=== PATIENT | female | born 1935 | race Caucasian/White ===

== ENCOUNTER → 2016-12-17 | Outpatient (CLI) | payer OTHER ==
[~2016-12-17] MED LIST: ALPRAZOLAM0.25 MG PO; BENIFIBER PO; CALCIUM + D 6001 TA1 PO; FERRO-TIME325 MG PO; FIBER350 GM PO; FISH OIL 1,001000 M1 PO; LANOXIN125 MCG PO; LEVOTHYROXINE25 MCG PO; OMEGA 3 FISH OI1 CAP PO; PRAVASTATIN SOD80 MG PO; PRILOSEC20 MG PO; RALOXIFENE HCL60 MG PO
--- NOTE | ~2016-12-17 | BD1 ---
[facility] A Service of [facility] & [facility] RADIOLOGY TEXT RESULTS PATIENT: YAKOV JOEL LOCATION: [facility] : 35 UNIT #: [id number] AGE: [address]: Miguelina Will MD SEX: F ORDER DR: [id number] [facility] [address] [place], [place] [address] [id number] O MR#: [id number] Acc #: [id number] NAME: YAKOV JOEL : 1935 SEX: F STUDY DATE/TIME: 12/17/2016 9:53 UNIT: [facility] ROOM: STUDY DESCRIPTION: BD Dexa Bone Dens 1+ Site Attending Physician: Miguelina Will M.D. Ordering Physician: Miguelina Will M.D. Primary Care Physician: Miguelina Will M.D. MEDICAL IMAGING REPORT This report is preliminary unless electronic signature is present EXAM Bone density spine/hip 12/17/2016 HISTORY Osteo. Postmenopausal. Nonsmoker. TECHNIQUE Bone density scanning performed upper 4 lumbar vertebral segments and the proximal left femur in 81-year-old 128-pound female. COMPARISON STUDIES 10/23/2014. FINDINGS L1-L4: Total bone mineral density 0.786 g/cm2 for a T-score 2.4 below mean for reference population normal young individuals and Z-score 0.4 standard deviations above the mean for age-match population. Compared to October 2014, there has been a statistically significant 15.4% increase in bone mineral density in this region. PROXIMAL LEFT FEMUR: Total bone mineral density 0.717 g/cm2 for a T-score 1.8 standard deviations below mean for reference population normal young individuals and Z-score 0.3 standard deviations above the mean for age-match population. The left femoral neck specifically, the bone low density is at 0.671 g/cm2 for T-score 1.6 standard deviations below mean for a reference population normal young individuals and Z-score 0.8 standard deviations above the mean for age-matched population. Using total bone mineral density as trending value in this region, there has been a 24.7% statistically significant increase in bone mineral density in the proximal left femur compared to 10/23/2014. IMPRESSION [facility]. [facility] A Service of [facility] & [facility] RADIOLOGY TEXT RESULTS PATIENT: YAKOV JOEL LOCATION: [facility] : 35 UNIT #: [id number] AGE: [address]: Miguelina Will MD SEX: F ORDER DR: 1. Osteopenia in the upper 4 lumbar vertebral segments overall. Patient felt to be at increased risk for fracture. Treatment options may be considered. Continued surveillance is recommended. 2. Statistically significant increases in bone mineral density upper 4 lumbar vertebral segments and proximal left femur compared to October 2014. See details above. Dictated by... Braulio An M.D. THIS IS AN ELECTRONICALLY VERIFIED REPORT Braulio An M.D. at 12/18/2016 6:15 PM Tasha TD: 12/17/2016 17:57 JOB #: [id number] MEDICAL IMAGING REPORT Page 1 of 1 COPY
--- NOTE | ~2016-12-17 | MY29 ---
[facility] A Service of [facility] / [facility] RADIOLOGY TEXT RESULTS PATIENT: YAKOV JOEL LOCATION: [facility] : 35 UNIT #: [id number] AGE: [address]: Miguelina Will MD SEX: F ORDER DR: [id number] [facility] [address] [place], [place] [address] [id number] O MR#: [id number] Acc #: [id number] NAME: YAKOV JOEL : 1935 SEX: F STUDY DATE/TIME: 12/17/2016 9:43 UNIT: [facility] ROOM: STUDY DESCRIPTION: MY LAUREN SCREENING W/ CAD BILAT Attending Physician: Miguelina Will M.D. Ordering Physician: Miguelina Will M.D. Primary Care Physician: Miguelina Will M.D. MEDICAL IMAGING REPORT This report is preliminary unless electronic signature is present EXAM Digital screening mammogram, 12/17/2016 HISTORY 81-year-old woman previous left lumpectomy with adjuvant radiation therapy. Annual screening. COMPARISON Mammograms date to 02/25/2006 with most recent screening 12/12/2015. FINDINGS Digital imaging of each breast was completed utilizing screening protocol. A true lateral view of the left breast is included. Review includes FDA-approved CAD device. Breast parenchyma is heterogeneous with residual parenchymal opacities in each breast. Right nipple inversion is noted. Left nipple inversion and retraction noted. I see no suspicious breast mass. There are no interval occurring microcalcifications and no suspicious architectural deformity. IMPRESSION Benign mammogram. Stable post lumpectomy findings left breast. Annual screening recommended. Patients over the age of 40 are entered into a reminder system with target due date for the next mammogram. A result letter will also be sent to the patient. BIRADS: 2 Benign Finding Dictated by... Yovany Polanco M.D. THIS IS AN ELECTRONICALLY VERIFIED REPORT [facility] A Service of [facility] / [facility] RADIOLOGY TEXT RESULTS PATIENT: YAKOV JOEL LOCATION: [facility] : 35 UNIT #: [id number] AGE: [address]: Miguelina Will MD SEX: F ORDER DR: Yovany Polanco M.D. at 12/17/2016 1:34 PM Erika TD: 12/17/2016 12:39 JOB #: [id number] MEDICAL IMAGING REPORT Page 1 of 1 COPY
== END | disposition home or self-care (01) ==
LOC: CWCC 09:12
DX: Z12.31 Encounter for screening mammogram for malignant neoplasm of breast (principal); M81.0 Age-related osteoporosis without current pathological fracture; Z98.890 Other specified postprocedural states; M85.88 Other specified disorders of bone density and structure, other site
CPT/HCPCS: 77080; G0202